=== PATIENT | male | born 1975 | race Caucasian/White ===

== ENCOUNTER 2018-11-07 15:45 | Emergency (ER) | payer SELFPAY ==
[~2018-11-07] VITALS: Ht 177.8 cm; Wt 99.8 kg
[2018-11-07 15:48] VITALS: BP_SYST 144
--- NOTE | 2018-11-07 17:06 | NUR ---
Patient to ER bed 06 to gown for evaluation. Side rails up.
--- NOTE | 2018-11-07 17:16 | NUR ---
Pt brought by self, A&Ox4, pt presents to ER with bilateral earache and dizziness, pt denies pain, skin pink and warm, cap refill <3, VSS, respirations even and unlabored, cap refill <3.
--- NOTE | 2018-11-07 17:17 | NUR ---
Dr Mann at bedside examining patient
[2018-11-07] MEDS ORDERED: KETOROLAC TROMETHAMINE 60 MG/2 ML VIAL IM ONE (17:30)
[2018-11-07] MEDS ORDERED: MECLIZINE HCL 25 MG TABLET (ANITVERT) PO ONE (17:30)
--- NOTE | 2018-11-07 17:57 | NUR ---
Patient given written and verbal discharge instructions and verbalizes understanding. ER MD discussed with patient the results and treatment provided. Patient in stable condition. ID arm band removed. Rx of Naprosyn, Bactrim, Sudafed given. Patient educated on pain management and to follow up with PMD. Pain Scale 0/10. Opportunity for questions provided and answered. Medication side effect fact sheet provided.
[2018-11-07 17:58] VITALS: BP_SYST 144
== END 2018-11-07 17:57 | disposition home or self-care (01) ==
LOC: SED 15:45
DX: J32.9 Chronic sinusitis, unspecified (principal); H92.02 Otalgia, left ear; R42 Dizziness and giddiness; R03.0 Elevated blood-pressure reading, without diagnosis of hypertension
CPT/HCPCS: 96372; 99283; J1885; J8597

== ENCOUNTER 2019-02-22 23:41 | Emergency (ER) | payer MEDICAID ==
[~2019-02-22] VITALS: Ht 175.3 cm; Wt 108.9 kg
[2019-02-22 23:47] VITALS: BP_SYST 140
[2019-02-23] MEDS ORDERED: NACL 0.9% 1,000 ML IV ONE (00:22)
[2019-02-23] MEDS ORDERED: ONDANSETRON HCL 4 MG/2 ML VIAL IVP ONE (00:30)
[2019-02-23] MEDS ORDERED: PIPERACILLIN/TAZO 3.38 GM in D5W 50 ML IV ONE (00:30)
[2019-02-23] MEDS ORDERED: MORPHINE 4 MG/ML INJ. SYRINGE IVP ONE (00:30)
[2019-02-23] MEDS ORDERED: PIPERACILLIN/TAZOBACTAM 3.375 GM/VIAL (ZOSYN) IV ONE (01:15)
[2019-02-23 01:19] LABS: BASOPHILS % (AUTO) 0.3 % (0.0-2.0); EOSINOPHILS % (AUTO) 0.1 % (0.0-4.0); HEMATOCRIT 42.4 % (36-54); HEMOGLOBIN 14.9 g/dL (14.0-18.0); LYMPHOCYTES # (AUTO) 0.5 K/uL (1.0-5.5); LYMPHOCYTES % (AUTO) 6.1 % (20.5-51.5); MEAN CORPUSCULAR HEMOGLOBIN 32 pg (27-31); MEAN CORPUSCULAR HGB CONC 35 % (32-36); MEAN CORPUSCULAR VOLUME 92 fL (79.0-98.0); MONOCYTES # (AUTO) 0.4 K/uL (0.0-1.0); MONOCYTES % (AUTO) 5.1 % (1.7-9.3); NEUTROPHILS # (AUTO) 7.9 K/uL (1.8-7.7); NEUTROPHILS % (AUTO) 88.4 % (40.0-70.0); PLATELET COUNT (AUTO) 180 K/uL (130-430); RED BLOOD CELL COUNT(AUTO) 4.62 MIL/uL (4.2-6.2); RED CELL DISTRIBUTION WIDTH 13.9 % (9.0-15.0); WHITE BLOOD COUNT (AUTO) 8.9 K/uL (4.8-10.8)
[2019-02-23 01:32] LABS: CALCIUM 9.2 mg/dL (8.4-11.0); CREATININE 1.11 mg/dL (0.55-1.30); POTASSIUM 3.3 mmol/L (3.5-5.1)
[2019-02-23] MEDS ORDERED: IOHEXOL 100 ML IV ONE (01:35)
[2019-02-23 01:46] LABS: ALBUMIN 3.7 g/dL (3.4-4.8); TOTAL BILIRUBIN 1.8 mg/dL (0.0-1.0)
[2019-02-23 02:10] LABS: INR 1.1 (0.80-1.20); PROTHROMBIN TIME 10.6 SECS (9.5-12.5)
[2019-02-23 03:52] LABS: BILIRUBIN,URINE NEGATIVE (NEGATIVE); BLOOD, URINE NEGATIVE (NEGATIVE); CLARITY/URINE CLEAR (CLEAR); COLOR,URINE YELLOW (YELLOW); GLUCOSE,URINE NEGATIVE (NEGATIVE); KETONES,URINE NEGATIVE (NEGATIVE); LEUKOCYTE ESTERASE ,URINE NEGATIVE (NEGATIVE); NITRITE, URINE NEGATIVE (NEGATIVE); PH,URINE >=9.0 (5.0-8.0); PROTEIN URINE TRACE (NEGATIVE)
[2019-02-23 04:41] VITALS: BP_SYST 126
== END 2019-02-23 04:41 | disposition home or self-care (01) ==
LOC: SED 23:41
DX: R10.31 Right lower quadrant pain (principal); R10.32 Left lower quadrant pain; R11.2 Nausea with vomiting, unspecified
CPT/HCPCS: 36415; 74177; 80053; 81003; 83605; 83690; 85025; 85610; 85730; 87040; 96365; 96375; 99284; J2270; J2405; J2543; Q9967

== ENCOUNTER 2019-10-31 22:33 | Emergency (ER) | payer MEDICAID ==
[~2019-10-31] VITALS: Ht 175.3 cm; Wt 108.9 kg
--- NOTE | 2019-10-31 22:53 | NUR ---
Patient to ER bed 7 to gown for evaluation. Side rails up.
--- NOTE | 2019-10-31 22:54 | NUR ---
Patient came from home. c/o left leg pain x yesterday. 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
[2019-10-31 22:56] VITALS: BP_SYST 164
--- NOTE | 2019-10-31 23:02 | NUR ---
ER Dr. Camp at bedside examining patient.
[2019-10-31] MEDS ORDERED: MORPHINE 2 MG/ML INJ. SYRINGE IM ONE (23:15)
[2019-10-31] MEDS ORDERED: LORazepam 2 MG/ML VIAL IM ONE (23:15)
--- NOTE | 2019-10-31 23:21 | NUR ---
Patient states " my daughter waited outside and she will ride back for me."
[2019-11-01 00:05] VITALS: BP_SYST 156
--- NOTE | 2019-11-01 00:05 | NUR ---
Patient given written and verbal discharge instructions and verbalizes understanding. ER MD discussed with patient the results and treatment provided. Patient in stable condition. ID arm band removed. Rx of Motrin, Roboxin and Tramadol given. Patient educated on pain management and to follow up with PMD. Pain Scale 3/10. Opportunity for questions provided and answered. Medication side effect fact sheet provided.
== END 2019-11-01 00:05 | disposition home or self-care (01) ==
LOC: SED 22:33
DX: S76.812A Strain of other specified muscles, fascia and tendons at thigh level, left thigh, initial encounter (principal); R03.0 Elevated blood-pressure reading, without diagnosis of hypertension; X58.XXXA Exposure to other specified factors, initial encounter; Y93.89 Activity, other specified; Y92.89 Other specified places as the place of occurrence of the external cause; Y99.8 Other external cause status
CPT/HCPCS: 96372; 99284; J2060; J2270